=== PATIENT | female | born 1980 | race Caucasian/White ===

== ENCOUNTER 2018-09-01 13:02 | Outpatient (CLI) | payer MEDICAID ==
--- NOTE | 2018-09-01 15:25 | ULT ---
LIMITED LEFT BREAST ULTRASOUND: Date: 09/01/18 PROVIDED CLINICAL HISTORY: Left breast palpable abnormality. FINDINGS: Limited sonographic interrogation of the left breast was performed in the region of palpable concern. There is a 2.3 cm simple appearing cyst present within the retroareolar region of the left breast at approximately 1:00 corresponding to the palpable finding. No concerning sonographic findings are maurilio dent. IMPRESSION: BIRADS Category 2 - Benign findings. Annual screening mammography is recommended. POS: OFF
== END 2018-09-01 13:03 | disposition home or self-care (01) ==
LOC: BICMAMMO 13:02
PROVIDERS: ATTEND Advanced Practice Midwife
DX: N64.4 Mastodynia (principal)
CPT/HCPCS: 77066; G0279

== ENCOUNTER 2023-06-20 08:11 | Outpatient (CLI) | payer BC | END 2023-06-20 08:12 | disposition home or self-care (01) | LOC: BICMAMMO 08:11 | PROVIDERS: ATTEND Nurse Practitioner Community Health | DX: Z12.31 Encounter for screening mammogram for malignant neoplasm of breast (principal); Z80.3 Family history of malignant neoplasm of breast | CPT/HCPCS: 77063; 77067 ==